=== PATIENT | female | born 1995 | race Hispanic/Latino ===

== ENCOUNTER 2020-11-07 15:53 | Inpatient (IN) | payer BC, OTHER, MEDICAID ==
[~2020-11-07] VITALS: Ht 152.4 cm; Wt 71.2 kg
[2020-11-07 17:00] LABS: HEMATOCRIT 45.6 % (36-48); MEAN CORPUSCULAR HEMOGLOBIN 32.4 pg (27.0-33.0); MEAN CORPUSCULAR HGB CONC 33.6 g/dL (32.0-36.0); MEAN CORPUSCULAR VOLUME 96.6 fL (79-99); RED BLOOD CELL COUNT(AUTO) 4.72 MIL/uL (4.00-5.50); RED CELL DISTRIBUTION WIDTH 13.4 % (11.0-15.5); WHITE BLOOD COUNT (AUTO) 9.8 K/uL (4.8-10.8)
[2020-11-07] MEDS: LACTATED RINGERS 1000ML 1,000 ML IV PRN ×2 (17:01→22:05)
[2020-11-07 17:04] LABS: APPEARANCE,URINE Clear (CLEAR); BILIRUBIN,URINE Negative (NEGATIVE); COLOR,URINE Yellow (YELLOW); GLUCOSE, URINE (UA) Negative (NEGATIVE); KETONES,URINE >=80 mg/dL (NEGATIVE); LEUKOCYTE ESTERASE ,URINE Large (NEGATIVE); NITRATE,URINE Negative (NEGATIVE); OCCULT BLOOD,URINE Moderate (NEGATIVE); PROTEIN,URINE Negative (NEGATIVE); UROBILINOGEN,URINE 0.2 mg/dL (0.2-1.0)
[2020-11-07 17:20] LABS: BACTERIA,URINE Moderate /HPF (None Seen); MUCUS,URINE Few LPF (None Seen); SQUAMOUS EPITHELIAL CELL,UR Few /HPF (0-2)
[2020-11-07] MEDS ORDERED: AMPICILLIN 2GM+NS 100ML 100 ML IV SCH (18:15)
[2020-11-07] MEDS ORDERED: AMPICILLIN 2GM+NS 100ML 100 ML IV ONE (18:27)
[2020-11-07] MEDS ORDERED: FLUCONAZOLE 100 MG TAB PO ONE (19:20)
[2020-11-07 20:09] VITALS: BP 120/74
[2020-11-07] MEDS ORDERED: PREN1COM14 PO (20:46)
[2020-11-07] MEDS: AMPICILLIN 1GM+NS 50ML 50 ML IV SCH (22:05)
[2020-11-08] MEDS: AMPICILLIN 1GM+NS 50ML 50 ML IV SCH ×4 (02:20→22:00)
[2020-11-08] MEDS ORDERED: OXYTOCIN-LR 20 UNITS/1000 ML 1,000 ML IV SCH ×2 (04:00→15:15)
[2020-11-08] MEDS ORDERED: PHENYLEPHRINE HCL 10 MG/ML 1ML VIAL IV ONE (07:52)
[2020-11-08] MEDS ORDERED: DURAMORPH PF1 MG/ML 10ML AMP IV ONE ×2 (07:52→09:16)
[2020-11-08] MEDS ORDERED: FENTANYL CITRATE PF 50 MCG/1 ML 2ML VIAL ONE ×2 (07:53→10:01)
[2020-11-08] MEDS ORDERED: PROPOFOL 10 MG/ML 20ML VIAL IV ONE (08:38)
[2020-11-08] MEDS ORDERED: KETAMINE HCL 100 MG/ML 5ML VIAL IJ ONE (08:47)
[2020-11-08] MEDS ORDERED: ONDANSETRON HCL 4 MG/2 ML VIAL ONE (09:24)
[2020-11-08] MEDS ORDERED: OXYTOCIN 10 UNIT/1ML 10ML VIAL ONE (09:24)
[2020-11-08] MEDS ORDERED: BUTORPHANOL TARTRATE 2 MG/ML IVP PRN (09:45)
[2020-11-08] MEDS ORDERED: LACTATED RINGERS 500 ML 500 ML IV PRN (09:45)
[2020-11-08] MEDS ORDERED: ROPIVACAINE 0.2% 100ML VIAL 100 ML EP SCH (09:45)
[2020-11-08] MEDS ORDERED: EPHEDRINE SULFATE 50 MG/ML AMPULE IVP PRN ×2 (09:45→10:00)
[2020-11-08] MEDS ORDERED: NALOXONE HCL 0.4 MG/1 ML ML IV PRN (09:45)
[2020-11-08] MEDS ORDERED: ONDANSETRON HCL 4 MG/2 ML VIAL IVP PRN (10:00)
[2020-11-08] MEDS ORDERED: CALDOLOR 800MG+NS 250ML 250 ML IV PRN (10:00)
[2020-11-08] MEDS ORDERED: NALOXONE HCL 0.4 MG/1 ML ML IVP PRN (10:00)
[2020-11-08] MEDS ORDERED: MEPERIDINE-PF 25 MG/ML SYG IV PRN (10:00)
[2020-11-08] MEDS ORDERED: DiphenhydrAMINE HCL 50 MG/ML VIAL IVP PRN (10:00)
[2020-11-08] MEDS: LACTATED RINGERS 1000ML 1,000 ML IV PRN (10:06)
[2020-11-08] MEDS ORDERED: LIDOCAINE HCL 1% 20 ML VIAL ONE (14:23)
[2020-11-08] MEDS ORDERED: ACETAMINOPHEN 325 MG TAB PO PRN (15:15)
[2020-11-08] MEDS ORDERED: WITCH HAZEL 1 PAD TP PRN (15:15)
[2020-11-08] MEDS ORDERED: LANOLIN 30GM OINTMENT TP PRN (15:15)
[2020-11-08] MEDS ORDERED: ACETAMINOPHEN-CODEINE 300/30MG TAB PO PRN (15:15)
[2020-11-08] MEDS ORDERED: BENZOCAINE/LANOLIN/ALOE VERA 60 ML AEROSOL TP PRN (15:15)
[2020-11-08] MEDS: IBUPROFEN 600 MG TABLET PO PRN (17:28)
[2020-11-08 17:41] VITALS: BP 133/76
[2020-11-08 19:15] VITALS: BP 132/68
[2020-11-08] MEDS: DOCUSATE SODIUM 100 MG CAP PO SCH (21:31)
[2020-11-08 22:52] VITALS: BP 116/63
[2020-11-09 02:55] VITALS: BP 109/64
[2020-11-09] MEDS: IBUPROFEN 600 MG TABLET PO PRN ×2 (07:07→14:08)
[2020-11-09 08:05] VITALS: BP 107/66
[2020-11-09] MEDS: DOCUSATE SODIUM 100 MG CAP PO SCH (09:12)
[2020-11-09 10:22] LABS: HEPATITIS Bs ANTIGEN SCREEN P Negative (Negative)
[2020-11-09 11:15] VITALS: BP 114/70
== END 2020-11-09 15:55 | disposition home or self-care (01) | DRG 807 ==
LOC: LDH 15:53 → OBSVTOIN 15:53 → WSH 11-08 17:37
PROVIDERS: ADMIT Obstetrics & Gynecology; ATTEND Obstetrics & Gynecology
PROC: 10907ZC Drainage of Amniotic Fluid, Therapeutic from Products of Conception, Via Natural or Artificial Opening (ICD-10-PCS; principal; 2020-11-08)
PROC: 10E0XZZ Delivery of Products of Conception, External Approach (ICD-10-PCS; 2020-11-08)
PROC: 0KQM0ZZ Repair Perineum Muscle, Open Approach (ICD-10-PCS; 2020-11-08)
PROC: 3E0R3BZ Introduction of Anesthetic Agent into Spinal Canal, Percutaneous Approach (ICD-10-PCS; 2020-11-08)
PROC: 00HU33Z Insertion of Infusion Device into Spinal Canal, Percutaneous Approach (ICD-10-PCS; 2020-11-08)
PROC: 0UQMXZZ Repair Vulva, External Approach (ICD-10-PCS; 2020-11-08)
DX: O99.824 Streptococcus B carrier state complicating childbirth (principal); Z37.0 Single live birth; O24.420 Gestational diabetes mellitus in childbirth, diet controlled; Z3A.39 39 weeks gestation of pregnancy; O69.81X0 Labor and delivery complicated by cord around neck, without compression, not applicable or unspecified; O70.1 Second degree perineal laceration during delivery; O70.0 First degree perineal laceration during delivery
CPT/HCPCS: 36415; 76805; 81001; 85027; 86592; 86850; 86900; 86901; 87088; 87340; G0378; J0290; J2274; J2370; J2405; J2590; J2704; J2795; J3010; J3490; J7120